=== PATIENT | male | born 1995 | race Caucasian/White ===

== ENCOUNTER 2018-10-17 18:44 | Emergency (ER) | payer OTHER ==
[~2018-10-17] VITALS: Ht 195.6 cm; Wt 94.9 kg
[2018-10-17 18:58] VITALS: Ht 195.6 cm; Wt 94.9 kg
[2018-10-17 20:41] VITALS: BP 123/56
== END 2018-10-17 20:41 | disposition home or self-care (01) ==
LOC: ED 18:44
DX: S80.12XA Contusion of left lower leg, initial encounter (principal); W21.03XA Struck by baseball, initial encounter; Y93.64 Activity, baseball; Y92.320 Baseball field as the place of occurrence of the external cause; Y99.8 Other external cause status
CPT/HCPCS: J1885; J2001; Q0092

== ENCOUNTER 2018-11-07 21:46 | Emergency (ER) | payer OTHER ==
[~2018-11-07] VITALS: Ht 195.6 cm; Wt 97.1 kg
[2018-11-07 21:49] VITALS: Ht 195.6 cm; Wt 97.1 kg
[2018-11-07 22:59] LABS: BASOPHIL % 0.5 % (0-2); PLATELET COUNT 177 x10^3mcL (130-400); RED CELL DISTRIBUTION WIDTH 13.6 % (11.5-14.5)
[2018-11-07 23:11] LABS: CALCIUM 8.3 mg/dL (8.5-10.1); CARBON DIOXIDE 26.7 mmol/L (21-32); CHLORIDE SERUM 105 mmol/L (98-107); GFR1 > 60 mL/min; GLUCOSE SERUM 108 mg/dL (74-106); POTASSIUM SERUM 3.9 mmol/L (3.5-5.1); SODIUM SERUM 142 mmol/L (136-145)
[2018-11-07 23:16] LABS: ALBUMIN 3.8 g/dL (3.4-5.0); ALKALINE PHOSPHATASE 75 U/L (46-116); ALT/SGPT 27 U/L (16-63); AST/SGOT 27 U/L (15-37); BILIRUBIN TOTAL 0.2 mg/dL (0.20-1.00); C REACTIVE PROTEIN 1.1 mg/dL (<=0.9)
[2018-11-07 23:43] LABS: ERYTHROCYTE SED RATE 9 mm/hr (0-15)
[2018-11-08 00:35] VITALS: BP 128/79
== END 2018-11-08 00:35 | disposition home or self-care (01) ==
LOC: ED 21:46
PROVIDERS: Emergency Medicine
DX: L02.416 Cutaneous abscess of left lower limb (principal)
CPT/HCPCS: 36415; J2001